=== PATIENT | male | born 1960 | race African-American/Black ===

== ENCOUNTER 2023-12-27 16:36 | Inpatient (IN) | payer MEDICAID, OTHER ==
[~2023-12-27] VITALS: Ht 190.5 cm; Wt 59.0 kg
[~2023-12-27 16:36] MED LIST: ASPI-1160 PO; CLOP-31 PO; FURO-151 PO; GABA-529 PO; LIP40 PO; MIDO5TAB4 PO
[2023-12-27] MEDS: ONDANSETRON HCL 4MG/2ML INJ IV STA (16:56)
[2023-12-27] MEDS: SODIUM CHLORIDE 0.9% 1,000 ML IV ONE (17:00)
[2023-12-27 19:03] LABS: BASOPHILS % 0.5 % (0.0-2.0); DIFFERENTIAL COMMENT 0; EOSINOPHILS % 0.3 % (0.0-5.0); HEMATOCRIT. 38.1 % (42.0-52.0); HEMOGLOBIN. 13.1 g/dL (14.0-18.0); LYMPHOCYTES % 25.8 % (20.0-50.0); MEAN CORPUSCULAR HEMOGLOBIN 35.2 pg (28.0-32.0); MEAN CORPUSCULAR HGB CONC 34.4 g/dL (31.0-37.0); MEAN CORPUSCULAR VOLUME 102.1 fL (80.0-94.0); MEAN PLATELET VOLUME 7.8 fl (7.4-10.4); MONOCYTES % 5.6 % (2.0-8.0); NEUTROPHILS % 67.8 % (40.0-76.0); PLATELET 199 x1000/uL (130-400); RED BLOOD CELL COUNT 3.73 mill/uL (4.7-6.1)
[2023-12-27 19:13] LABS: INR 1.2; PROTHROMBIN TIME 13.1 sec (9.6-11.0)
[2023-12-27 19:23] LABS: LACTIC ACID 2.2 mmol/L (0.4-2.0)
[2023-12-27 19:24] LABS: ALBUMIN 2.9 g/dL (3.2-4.8); CARBON DIOXIDE 28 mEq/L (21-32); CHLORIDE 105 mEq/L (98-107); CREATININE 0.6 mg/dL (0.6-1.3); GLUCOSE 81 mg/dL (70-105); POTASSIUM 4.2 mEq/L (3.5-5.1); PROTEIN TOTAL 8.2 g/dL (6.0-8.3); SODIUM 133 mEq/L (136-145); UREA NITROGEN BLOOD 20 mg/dL (9-23)
[2023-12-27 19:25] LABS: ALANINE AMINOTRANSFERASE 27 IU/L (10-49); ASPARTATE AMINOTRANSFERASE 49 IU/L (<34); BILIRUBIN TOTAL 0.4 mg/dL (0.1-1.0); ETHANOL BLOOD < 10 mg/dL (<10)
[2023-12-27] MEDS: PIPERACILLIN/TAZO 3.375G/50ML 50 ML IV SCH (22:56)
[2023-12-28] MEDS ORDERED: ONDANSETRON HCL 4MG/2ML INJ IV PRN (06:15)
[2023-12-28] MEDS ORDERED: ACETAMINOPHEN 325MG TABLET PO PRN (06:15)
[2023-12-28 08:00] VITALS: BP 120/88; PULSE 89; RESP 20; TEMP 96
[2023-12-28 08:19] VITALS: BP 106/80; PULSE 86; RESP 17; TEMP 97.8
[2023-12-28] MEDS ORDERED: ENOXAPARIN 40MG/0.4ML SYR SUBCUT SCH (09:00)
[2023-12-28] MEDS: DIATR MEGLU/DIATRIZOATE SOLN 30ML PO NR (09:37)
[2023-12-28] MEDS: PANTOPRAZOLE SODIUM 40 MG/VIAL IV SCH (09:37)
[2023-12-28] MEDS: ENOXAPARIN 30MG/0.3ML SYR SUBCUT SCH (09:38)
[2023-12-28 12:00] VITALS: BP 113/83; PULSE 98; RESP 20; TEMP 96
[2023-12-28] MEDS ORDERED: HYDROCODONE/ACETAMINOPHEN 10/325MG TABLET PO NR (12:45)
[2023-12-28] MEDS ORDERED: DIATR MEGLU/DIATRIZOATE SOLN 120ML ONE (13:34)
[2023-12-28 16:00] VITALS: BP 120/89; PULSE 96; RESP 20; TEMP 97
[2023-12-28 20:00] VITALS: BP 97/72; PULSE 100; RESP 17; TEMP 97.3
[2023-12-29] VITALS: BP 104/76; PULSE 70; RESP 16; TEMP 97.5
[2023-12-29 04:00] VITALS: BP 94/71; PULSE 63; RESP 16; TEMP 97.3
[2023-12-29 08:00] VITALS: BP 102/73; PULSE 89; RESP 18; TEMP 96.5
[2023-12-29] MEDS ORDERED: SODIUM BICARBONATE 4% (2.4MEQ) 5ML VIAL IV ONE (08:55)
[2023-12-29] MEDS ORDERED: LIDOCAINE HCL 1% 10 MG/ML 10ML VIAL ONE (08:55)
[2023-12-29 11:51] LABS: BODY FLUID RBC 21 /cu mm (0-2000); BODY FLUID WBC 113 /cu mm (0-200)
[2023-12-29 12:00] VITALS: BP 114/83; PULSE 65; RESP 18; TEMP 96.9
[2023-12-29 16:00] VITALS: BP 120/85; PULSE 100; RESP 18; TEMP 96.8
[2023-12-29 17:18] VITALS: BP 120/85; PULSE 100; TEMP 96.8; O2SAT 97
[2023-12-30] MEDS ORDERED: FAMOTIDINE 20MG/2ML VIAL IV SCH (09:00)
== END 2023-12-29 19:00 | disposition home or self-care (01) ==
LOC: ER 16:36 → 8WST 23:18 → EDBEDREQ 23:52
PROVIDERS: ADMIT Internal Medicine; ATTEND Internal Medicine
PROC: 0W9G3ZZ Drainage of Peritoneal Cavity, Percutaneous Approach (ICD-10-PCS; principal; 2023-12-29)
DX: K74.60 Unspecified cirrhosis of liver (principal); R18.8 Other ascites; I11.0 Hypertensive heart disease with heart failure; I95.9 Hypotension, unspecified; I50.9 Heart failure, unspecified; K59.00 Constipation, unspecified
CPT/HCPCS: 36415; 49083; 71045; 74176; 74177; 76705; 80053; 80320; 83605; 83880; 85025; 93005; 93306; 99291; C9113; J1650; J2405; J2543; J3490; J7030; Q9963; G0480